=== PATIENT | male | born 1990 | race African-American/Black ===

== ENCOUNTER 2022-04-04 18:08 | Emergency (ER) | payer SELFPAY | END 2022-04-04 21:26 | disposition home or self-care (01) | LOC: ERS 18:08 | DX: R50.9 Fever, unspecified (principal); F17.210 Nicotine dependence, cigarettes, uncomplicated | CPT/HCPCS: 87804; 99283 ==

== ENCOUNTER 2022-05-07 18:50 | Emergency (ER) | payer SELFPAY | END 2022-05-07 19:49 | disposition home or self-care (01) | LOC: ERS 18:50 | DX: S66.912A Strain of unspecified muscle, fascia and tendon at wrist and hand level, left hand, initial encounter (principal); S66.911A Strain of unspecified muscle, fascia and tendon at wrist and hand level, right hand, initial encounter; F17.210 Nicotine dependence, cigarettes, uncomplicated; X50.3XXA Overexertion from repetitive movements, initial encounter | CPT/HCPCS: 99283 ==